=== PATIENT | female | born 1990 | race Caucasian/White ===

== ENCOUNTER 2017-01-04 17:51 | Emergency (ER) | payer OTHER ==
[2017-01-04 18:06] VITALS: BP 121/71; PULSE 79; TEMP 98.6; BMI 32.4
--- NOTE | 2017-01-04 19:23 | PDOC ---
History of Present Illness - General Chief Complaint: Ear Problem Stated Complaint: EAR PAIN Time Seen by Provider: 01/04/17 19:08 - History of Present Illness Initial Comments: 01/04/17 19:20 CHIEF COMPLAINT: HISTORY OF PRESENT ILLNESS: 26 yo F with hx of anxiety No recent travel or sick contacts. PAST MEDICAL HISTORY: Denies past medical history FAMILY HISTORY: Denies SOCIAL HISTORY: Lives at home with ____. Occupation: . Denies tobacco, alcohol, illicit drug use. SURGICAL HISTORY: Denies ALLERGIES: No known drug allergies REVIEW OF SYSTEMS General/Constitutional: Denies fever or chills. Denies weakness, weight change. HEENT: R Ear pain. Denies change in vision. Denies ear pain or discharge. Denies sore throat. Cardiovascular: Denies chest pain or shortness of breath. Respiratory: Denies cough, wheezing, or hemoptysis. Gastrointestinal: Denies nausea, vomiting, diarrhea or constipation. Denies rectal bleeding. Genitourinary: Denies dysuria, frequency, or change in urination. Musculoskeletal: Denies joint or muscle swelling or pain. Denies neck or back pain. Skin and breasts: Denies rash or easy bruising. PHYSICAL EXAM General Appearance: Well-appearing, appropriately dressed. No apparent distress , no intoxication. HEENT: Marked swelling to auditory canal. No erythema or exudate to tonsils b/ l. Tonsils 1+. EOMI, PERRLA, normal ENT inspection, normal voice, TMs normal, pharynx normal. No conjunctival pallor. No photophobia, scleral icterus. Neck: Supple. Trachea midline. No tenderness, rigidity, carotid bruit, stridor , lymphadenopathy, or thyromegaly. Respiratory/Chest: Lungs CTAB. No shortness of breath, chest tenderness, respiratory distress, accessory muscle use. No crackles, rales, rhonchi, stridor , wheezing, dullness Cardiovascular: RRR. S1, S2. No JVD, murmur, bradycardia, tachycardia. Vascular Pulses: Dorsalis-Pedis (R): 2+, Dorsalis-Pedis (L): 2+ Gastrointestinal/Abdominal: Normal bowel sounds. Abdomen soft, non-distended. No tenderness or rebound tenderness. No organomegaly, pulsatile mass, guarding , hernia, hepatomegaly, splenomegaly. Lymphatic: No adenopathy, tenderness. Musculoskeletal/Extremities: Normal inspection. FROM of all extremities, normal capillary refill. Pelvis Stable. No CVA tenderness. No tenderness to extremities, pedal edema, swelling, erythema or deformity. Integumentary: Appropriate color, dry, warm. 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 Fully oriented, alert. Appropriate mood/affect. Motor strength 5/5. No appreciable EOM palsy, facial droop or sensory deficit. 01/04/17 19:28 Past History - Past Medical History Allergies/Adverse Reactions: Allergies Allergy/AdvReac Type Severity Reaction Status Date / Time No Known Allergies Allergy Verified 01/04/17 18:05 Home Medications: Ambulatory Orders Acetaminophen W/ Codeine #3 [Tylenol # 3 -] 1 tab PO Q4H PRN #30 tablet MDD 6 tabs 02/18/16 Ondansetron [Zofran *Odt*] 8 mg SL Q6H PRN #20 od.tablet MDD 4 tabs 02/18/16 Ciprofloxacin HCl/Dexameth [Ciprodex Otic Suspension] 4 drop AD BID #1 bottle Asthma: No Cancer: No Cardiac Disorders: No Diabetes: No HTN: No Psychiatric Problems: Yes (ANXIETY) Seizures: No Thyroid Disease: No - Psycho/Social/Smoking Cessation Hx Anxiety: Yes Suicidal Ideation: No Smoking History: Never smoked Have you smoked in the past 12 months: No Hx Alcohol Use: No Drug/Substance Use Hx: No Substance Use Type: None Hx Substance Use Treatment: No *Physical Exam - Vital Signs Last Vital Signs Temp Pulse Resp BP Pulse Ox 98.6 F 79 20 121/71 100 01/04/17 18:03 01/04/17 18:03 01/04/17 18:03 01/04/17 18:03 01/04/17 18:03 *DC/Admit/Observation/Transfer Diagnosis at time of Disposition: Otitis externa Qualifiers: Otitis externa type: unspecified type Chronicity: acute Laterality: right Qualified Code(s): H60.501 - Unspecified acute noninfective otitis externa, right ear - Discharge Dispostion Disposition: HOME Condition at time of disposition: Stable Admit: No - Prescriptions Prescriptions: Ciprofloxacin HCl/Dexameth [Ciprodex Otic Suspension] 4 drop AD BID #1 bottle - Referrals Referrals: Conner Slater MD [Primary Care Provider] - - Patient Instructions Printed Discharge Instructions: DI for Otitis Externa Additional Instructions: Please use eardrops as directed. Follow up with your primary care doctor in one week. If you experience any fever, nausea, vomiting, diarrhea, difficulty speaking or swallowing, difficulty breathing, or any new or worsening symptoms, please return to the ER.
--- NOTE | 2017-01-04 19:27 | PDOC ---
History of Present Illness - General Chief Complaint: Ear Problem Stated Complaint: EAR PAIN Time Seen by Provider: 01/04/17 19:08 History Source: Patient Exam Limitations: No Limitations Past History - Travel Traveled outside of the country in the last 30 days: No Close contact w/someone who was outside of country & ill: No - Past Medical History Allergies/Adverse Reactions: Allergies Allergy/AdvReac Type Severity Reaction Status Date / Time No Known Allergies Allergy Verified 01/04/17 18:05 Home Medications: Ambulatory Orders Acetaminophen W/ Codeine #3 [Tylenol # 3 -] 1 tab PO Q4H PRN #30 tablet MDD 6 tabs 02/18/16 Ondansetron [Zofran *Odt*] 8 mg SL Q6H PRN #20 od.tablet MDD 4 tabs 02/18/16 Asthma: No Cancer: No Cardiac Disorders: No Diabetes: No HTN: No Psychiatric Problems: Yes (ANXIETY) Seizures: No Thyroid Disease: No - Psycho/Social/Smoking Cessation Hx Anxiety: Yes Suicidal Ideation: No Smoking History: Never smoked Have you smoked in the past 12 months: No Hx Alcohol Use: No Drug/Substance Use Hx: No Substance Use Type: None Hx Substance Use Treatment: No Review of Systems - Review of Systems Able to Perform ROS?: No Is the patient limited Peruvian proficient: No Constitutional: Yes: Symptoms Reported, Loss of Appetite HEENTM: No: Symptoms Reported *Physical Exam - Vital Signs Last Vital Signs Temp Pulse Resp BP Pulse Ox 98.6 F 79 20 121/71 100 01/04/17 18:03 01/04/17 18:03 01/04/17 18:03 01/04/17 18:03 01/04/17 18:03 - Physical Exam General Appearance: Yes: Nourished, Appropriately Dressed HEENT: positive: RAKESH, TMs Normal, Pharynx Normal
== END 2017-01-04 20:01 | disposition home or self-care (01) ==
LOC: JERFT 17:51
DX: H60.501 Unspecified acute noninfective otitis externa, right ear (principal); F41.9 Anxiety disorder, unspecified
CPT/HCPCS: 87070; 87430; 99281-25

== ENCOUNTER 2018-05-30 02:46 | Emergency (ER) | payer OTHER ==
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
[2018-05-30 03:15] VITALS: BMI 28.3
[2018-05-30 03:22] LABS: URINE APPEARANCE SLCLOUDY; URINE BILIRUBIN NEGATIVE (<2.0 mg/dL); URINE COLOR YELLOW; URINE GLUCOSE (UA) NEGATIVE (NEGATIVE); URINE KETONE TRACE (NEGATIVE); URINE LEUK ESTERASE TRACE (NEGATIVE); URINE NITRITE NEGATIVE (NEGATIVE); URINE PROTEIN 1+ (NEGATIVE); URINE UROBILINOGEN NEGATIVE mg/dL (0.2-1.0)
[2018-05-30 04:01] LABS: ALBUMIN 3.8 g/dl (3.4-5.0); ALK PHOS 110 U/L (45-117); ANION GAP 6 MMOL/L (8-16); BILIRUBIN,TOTAL 0.2 mg/dL (0.2-1); BLOOD UREA NITROGEN 14 mg/dL (7-18); CALCIUM 8.7 mg/dL (8.5-10.1); CHLORIDE 110 mmol/L (98-107); CO2 26 mmol/L (21-32); CREATININE 0.6 mg/dL (0.55-1.3); GLUCOSE,RANDOM 105 mg/dL (74-106); POTASSIUM 4.4 mmol/L (3.5-5.1); SGOT/AST 13 U/L (15-37); SGPT/ALT 26 U/L (13-61); SODIUM 141 mmol/L (136-145); TOT PROT 7.9 g/dl (6.4-8.2)
--- NOTE | 2018-05-30 07:21 | PDOC ---
*Physical Exam - Vital Signs Last Vital Signs Temp Pulse Resp BP Pulse Ox 98 F 95 H 19 150/90 100 05/30/18 06:46 05/30/18 06:46 05/30/18 06:46 05/30/18 06:46 05/30/18 06:46 ED Treatment Course - LABORATORY CBC & Chemistry Diagram: 05/30/18 03:09 - ADDITIONAL ORDERS Additional order review: Laboratory Results 05/30/18 05/30/18 03:09 03:09 Sodium 141 Potassium 4.4 Chloride 110 H Carbon Dioxide 26 Anion Gap 6 L BUN 14 Creatinine 0.6 Creat Clearance w eGFR > 60 Random Glucose 105 Calcium 8.7 Total Bilirubin 0.2 AST 13 L ALT 26 Alkaline Phosphatase 110 Total Protein 7.9 Albumin 3.8 TSH 1.77 Beta HCG, Quant < 1.0 Urine Color Yellow Urine Appearance Slcloudy Urine pH 5.0 Ur Specific [place] 1.031 Urine Protein 1+ H Urine Glucose (UA) Negative Urine Ketones Trace H Urine Blood Negative Urine Nitrite Negative Urine Bilirubin Negative Urine Urobilinogen Negative Ur Leukocyte Esterase Trace Medical Decision Making - Medical Decision Making Patient signed out to me by SUSHILA Lynn. Patient currently mentions slight lower abdominal discomfort. Denies fever, n/v/d, black/bloody stools, urinary complaints. On PE, patient appears comfortable, abdomen soft, ND, NT, no rebounding or guarding. Labs reviewed and unremarkable. Patient mentions having difficulty managing her anxiety for the past several years. Used to be on Paxil , but is no longer on that medication, though states Paxil never really helped much with her anxiety. Patient pending psych evaluation. 05/30/18 07:[address] Garibay and recommended to start Klonopin 0.5 mg daily (15 tabs) Recommend also follow-up in [facility] clinic. Stable for d/c 05/30/18 13:02 *DC/Admit/Observation/Transfer Diagnosis at time of Disposition: Anxiety - Discharge Dispostion Disposition: HOME Condition at time of disposition: Good Decision to Admit order: No - Prescriptions Prescriptions: clonazePAM [Klonopin -] 0.5 mg PO DAILY PRN #15 tablet MDD 1 PRN Reason: Anxiety - Referrals Referrals: [facility], Mental Health Clinic [Other] - 2 Days (Hours Friday through 9 a.m. to 7 p.m. Friday 9 a.m. to 5 p.m.) - Patient Instructions Printed Discharge Instructions: DI for Anxiety -- Adult Additional Instructions: Thank you for choosing [facility]. It was a pleasure taking care of you. Please take Klonopin as needed for anxiety Please call [facility] mental health clinic on Friday to follow-up with a psychologist. Return to the Emergency Department if your symptoms worsen or persist, you have thoughts of hurting yourself or others or other concerning symptoms. - Post Discharge Activity Forms/Work/School Notes: My Personal Safety Plan
[2018-05-30 09:30] LABS: EPI CELLS FEW /HPF (FEW); URINE BACTERIA RARE /hpf (NONE SEEN); URINE MUCUS FEW
[2018-05-30 12:16] VITALS: BP 96/58; PULSE 80; TEMP 99.2
[2018-05-30] MEDS ORDERED: clonazePAM 0.5 MG TABLET PO ONE (12:53)
--- NOTE | 2018-05-30 12:58 | CON.PSY ---
Psychiatry Consult Chief Complaint: I have anxiety and panic symptoms, I stopped taking Paxil year ago because it did not help me. I am not suicidal or Homicidal , I want to get better to take care of my kids. Symptoms: reports: Anxiety, Panic Attacks - Previous Psychiatric Treatment Outpatient: None, More than 6 mos ago Inpatient: None - Previous Substance Abuse Treatment Outpatient: None Inpatient: None - Reason for Previous Treatment Reason for Previous Treatment: Anxiety or Panic Disorder - Allergies Allergies: Allergies Allergy/AdvReac Type Severity Reaction Status Date / Time No Known Allergies Allergy Verified 05/30/18 03:12 - Current Living Status Usual Living Arrangement: With Spouse - Current Mental Status Evaluation Appearance: Well Groomed Attitude: Cooperative - Affect Affect: Full Range Appropriateness: Appropriate to Content - Mood Mood: Anxious - Speech/Language Expressive: Coherent - Psychomotor Activity Psychomotor Activity: Slowed - Thought Process Thought Process: Intact - Thought Content Hallucinations: Absent Delusions: Absent - Self Perception Self Perception: No Impairment - Cognition Attention: Alert Orientation: Time Memory, Immediate Recall: Intact Memory, Short Term: 3/3 Memory, Remote with Promptin/3 - Concentration Serial Sevens Intact: Yes Simple Calculations Intact: Yes - Abstraction Judgement: Intact - Insight Insight: Intact - Impulse Control Impulse Control: Good Control - Suicidal Ideation Suicidal Ideation: No - Homicidal Ideation Homicidal Ideation: No Assessment/Plan 1) Patient is not suicidal or Homicidal at this timer. 2) gice Klonapin 0.5 mg po stat and 0.5mg po daily for 2 weeks. 3) Patient will seek out patient therapy probably ay [facility].
[2018-05-30] MEDS ORDERED: clonazePAM 0.5 MG TABLET ONE (13:13)
== END 2018-05-30 13:22 | disposition home or self-care (01) ==
LOC: JER 02:46
DX: F41.9 Anxiety disorder, unspecified (principal)
CPT/HCPCS: 36415; 80053; 81003; 81015; 84443; 84481; 84702; 99284-25